=== PATIENT | female | born 1995 | race Caucasian/White ===

== ENCOUNTER → 2017-07-28 | Outpatient (CLI) | payer OTHER ==
[~2017-07-28] MED LIST: CEPH500 PO; CRUTCH4 USE; ESCI10 PO; HYDACE5 PO; IBUP600 PO; IBUP800 PO; Omeprazole20 M1 PO; PROM25 PO; Robaxin500 MG PO; Sprintec1 EACH PO; Veetids 500500 MG PO; Verotin-Gr Cap1 EACH PO; Zofran Odt4 MG SL
== END | disposition home or self-care (01) ==
LOC: LAB 15:29
DX: Z33.1 Pregnant state, incidental (principal)
CPT/HCPCS: 87081; 87653

== ENCOUNTER 2017-08-30 06:06 | Inpatient (IN) | payer OTHER ==
[~2017-08-30] VITALS: Ht 167.6 cm; Wt 92.2 kg
[~2017-08-30 06:06] MED LIST changes: -ESCI10 PO; -Robaxin500 MG PO; -Verotin-Gr Cap1 EACH PO
[2017-08-30 06:59] LABS: BASOPHILS ABSOLUTE AUTO 0.07 K/mm3 (0.00-0.23); BASOPHILS PERCENT AUTO 1 % (0-2); EOSINOPHILS ABSOLUTE AUTO 0.22 K/mm3 (0.00-0.68); EOSINOPHILS PERCENT AUTO 2 % (0-6); Hematocrit 36.2 % (33.0-51.0); Hemoglobin 12.4 g/dL (11.5-16.0); IMMATURE GRAN ABSOLUTE AUTO 0.23 K/mm3 (0.00-0.10); IMMATURE GRAN PERCENT AUTO 2 % (0-1); LYMPHOCYTES PERCENT AUTO 23 % (21-46); MONOCYTES ABSOLUTE AUTO 1.08 K/mm3 (0.16-1.47); MONOCYTES PERCENT AUTO 9 % (4-13); Mean Corpuscular HGB 30.5 pg (26.0-34.0); Mean Corpuscular HGB Conc 34.3 g/dL (31.5-36.5); Mean Corpuscular Volume 89 fL (80-100); Mean Platelet Volume 10.8 fL (9.1-12.4); NEUTROPHILS ABSOLUTE AUTO 7.82 K/mm3 (1.96-9.15); NEUTROPHILS PERCENT AUTO 64 % (41-73); Platelet Count 219 K/mm3 (150-400); RDW Coefficient Variation 13.1 % (11.7-14.2); RDW Standard Deviation 42.6 fL (35.1-46.3); Red Blood Cell Count 4.06 M/mm3 (3.80-5.20); White Blood Cell Count 12.22 K/mm3 (4.00-11.30)
[2017-08-31 07:50] LABS: Hematocrit 30.4 % (33.0-51.0); Hemoglobin 10.3 g/dL (11.5-16.0); Mean Corpuscular HGB 30.7 pg (26.0-34.0); Mean Corpuscular HGB Conc 33.9 g/dL (31.5-36.5); Mean Corpuscular Volume 91 fL (80-100); Mean Platelet Volume 10.9 fL (9.1-12.4); Platelet Count 179 K/mm3 (150-400); RDW Coefficient Variation 13.2 % (11.7-14.2); RDW Standard Deviation 43.1 fL (35.1-46.3); Red Blood Cell Count 3.36 M/mm3 (3.80-5.20); White Blood Cell Count 11.39 K/mm3 (4.00-11.30)
[2017-09-01] MEDS ORDERED: IBUP800 PO (10:33)
[2017-09-01] MEDS ORDERED: Verotin-Gr Cap1 EACH PO (10:33)
[2017-11-21] MEDS ORDERED: IBUP800 PO (12:17)
[2017-11-21] MEDS ORDERED: Robaxin500 MG PO (12:17)
[2018-01-04] MEDS ORDERED: ESCI10 PO (14:12)
[2018-01-04] MEDS ORDERED: Sprintec1 EACH PO (14:13)
== END 2017-09-01 14:15 | disposition home or self-care (01) | DRG 775 ==
LOC: BC 06:06
PROVIDERS: Obstetrics & Gynecology
PROC: 10E0XZZ Delivery of Products of Conception, External Approach (ICD-10-PCS; principal; 2017-08-30)
PROC: 3E033VJ Introduction of Other Hormone into Peripheral Vein, Percutaneous Approach (ICD-10-PCS; 2017-08-30)
DX: O99.824 Streptococcus B carrier state complicating childbirth (principal); Z37.0 Single live birth; Z3A.39 39 weeks gestation of pregnancy
CPT/HCPCS: 36415; 51702; 85025; 85027; J0290; J1885; J2590; J3010; J7120

== ENCOUNTER 2018-10-02 19:38 | Emergency (ER) | payer OTHER ==
[~2018-10-02] VITALS: Ht 167.6 cm; Wt 83.9 kg
[~2018-10-02 19:38] MED LIST changes: +ESCI10 PO; +Robaxin500 MG PO; +Verotin-Gr Cap1 EACH PO
[2018-10-02] MEDS ORDERED: Augmentin 875-1 EACH PO (22:32)
[2018-10-02] MEDS ORDERED: KETO10 PO (22:33)
== END 2018-10-02 22:53 | disposition home or self-care (01) ==
LOC: ER 19:38
DX: K04.7 Periapical abscess without sinus (principal); Z79.899 Other long term (current) drug therapy; F31.9 Bipolar disorder, unspecified
CPT/HCPCS: 99283

== ENCOUNTER → 2020-11-04 | Outpatient (CLI) | payer OTHER ==
[~2020-11-04] MED LIST changes: +Augmentin 875-1 EACH PO; +KETO10 PO
[2020-11-04 14:08] LABS: Candida species (DNA Probe) Negative (NEGATIVE); G. vaginalis (DNA Probe) Positive (NEGATIVE); T. vaginalis (DNA Probe) Negative (NEGATIVE)
== END | disposition home or self-care (01) ==
LOC: LAB SHORT 09:25
PROVIDERS: Family Medicine
DX: Z12.4 Encounter for screening for malignant neoplasm of cervix (principal); N89.8 Other specified noninflammatory disorders of vagina
CPT/HCPCS: 87480; 87510; 87660; G0123

== ENCOUNTER 2021-01-05 20:08 | Emergency (ER) | payer OTHER, BC ==
[~2021-01-05] VITALS: Ht 167.6 cm; Wt 81.7 kg
[2021-01-05] MEDS ORDERED: LIDO700A20 TOP (21:58)
== END 2021-01-05 22:30 | disposition home or self-care (01) ==
LOC: ER 20:08
DX: M54.6 Pain in thoracic spine (principal); M54.5 Low back pain; M54.2 Cervicalgia; M25.551 Pain in right hip; X50.1XXA Overexertion from prolonged static or awkward postures, initial encounter; Y92.89 Other specified places as the place of occurrence of the external cause; Y99.0 Civilian activity done for income or pay
CPT/HCPCS: 96372; 99282-25; A9270; J1885

== ENCOUNTER 2024-03-24 09:05 | Emergency (ER) | payer OTHER ==
[~2024-03-24] VITALS: Ht 167.6 cm; Wt 90.7 kg
[~2024-03-24 09:05] MED LIST changes: +ACET500 PO; +LIDO700A20 TOP; +METR500 PO; +Metronidazole70 GM VAG; +ORAL ANESTHETIC9 GM MM; +PENVK500 PO
[2024-03-24 10:32] LABS: BASOPHILS ABSOLUTE AUTO 0.07 K/mm3 (0.00-0.23); BASOPHILS PERCENT AUTO 1 % (0-2); EOSINOPHILS ABSOLUTE AUTO 0.08 K/mm3 (0.00-0.68); EOSINOPHILS PERCENT AUTO 1 % (0-6); Hematocrit 37.9 % (33.0-51.0); Hemoglobin 12.6 g/dL (11.5-16.0); IMMATURE GRAN ABSOLUTE AUTO 0.04 K/mm3 (0.00-0.10); IMMATURE GRAN PERCENT AUTO 0 % (0-1); LYMPHOCYTES ABSOLUTE AUTO 2.22 K/mm3 (0.84-5.20); LYMPHOCYTES PERCENT AUTO 20 % (21-46); MONOCYTES ABSOLUTE AUTO 0.78 K/mm3 (0.16-1.47); MONOCYTES PERCENT AUTO 7 % (4-13); Mean Corpuscular HGB 27.7 pg (26.0-34.0); Mean Corpuscular HGB Conc 33.2 g/dL (31.5-36.5); Mean Corpuscular Volume 83 fL (80-100); Mean Platelet Volume 10.3 fL (9.1-12.4); NEUTROPHILS ABSOLUTE AUTO 7.83 K/mm3 (1.96-9.15); NEUTROPHILS PERCENT AUTO 71 % (41-73); Platelet Count 312 K/mm3 (150-400); RDW Coefficient Variation 13.7 % (11.7-14.2); RDW Standard Deviation 41.1 fL (35.1-46.3); Red Blood Cell Count 4.55 M/mm3 (3.80-5.20); White Blood Cell Count 11.02 K/mm3 (4.00-11.30)
[2024-03-24 10:56] LABS: Albumin, Blood 3.8 g/dL (3.4-5.0); Bilirubin, Total 1.1 mg/dL (0.1-1.0); Bun/Creatinine Ratio 16.2 (12.0-20.0); Calcium, Blood 9.4 mg/dL (8.5-10.1); Creatinine, Blood 0.62 mg/dL (0.40-1.00); Globulin, Blood 3.9 g/dL (2.2-4.0); Potassium, Blood 4.3 mmol/L (3.5-5.5); Total Protein, Blood 7.7 g/dL (6.4-8.2)
[2024-03-24 12:45] VITALS: BP 129/86
== END 2024-03-24 13:24 | disposition home or self-care (01) ==
LOC: ER 09:05
PROVIDERS: Physician Assistant
DX: N92.0 Excessive and frequent menstruation with regular cycle (principal)
CPT/HCPCS: 76801; 76817; 80053; 84702; 84703; 85025; 86850; 86900; 86901; 99284-25